=== PATIENT | male | born 1940 | race Caucasian/White ===

== ENCOUNTER → 2020-06-08 | Outpatient (REF) | payer MEDICARE, OTHER ==
[2020-07-05 19:55] LABS: HEMATOCRIT 44.5 % (42.0-52.0); HEMOGLOBIN 15.5 g/dl (13.5-17.5); MEAN CORPUSCULAR HEMOGLOBIN 30.2 pg (27.0-33.0); MEAN CORPUSCULAR HGB CONC 34.8 g/dl (32.0-36.5); MEAN CORPUSCULAR VOLUME 86.6 fl (80.0-96.0); PLATELET COUNT, AUTOMATED 286 10^3/uL (150-450); RED BLOOD COUNT 5.14 10^6/uL (4.30-6.10); WHITE BLOOD COUNT 10.1 10^3/uL (4.0-10.0)
[2020-07-18 20:38] LABS: ALT/SGPT 22 U/L (12-78); BLOOD UREA NITROGEN 20 MG/DL (7-18); CARBON DIOXIDE LEVEL 28 MEQ/L (21-32); CHLORIDE LEVEL 100 MEQ/L (98-107); CREATININE FOR GFR 1.13 MG/DL (0.70-1.30); GLOMERULAR FILTRATION RATE > 60.0 (>42); GLUCOSE, FASTING 127 MG/DL (70-100); POTASSIUM SERUM 3.4 MEQ/L (3.5-5.1); SODIUM LEVEL 134 MEQ/L (136-145); TOTAL PROTEIN 7.3 GM/DL (6.4-8.2)
== END ==
LOC: M LAB REF 08:28
PROVIDERS: ATTEND Physician Assistant Medical
DX: C64.2 Malignant neoplasm of left kidney, except renal pelvis (principal)

== ENCOUNTER → 2021-06-15 | Outpatient (CLI) | payer MEDICARE, OTHER ==
[2021-06-15 15:28] LABS: HEMATOCRIT 40.6 % (42.0-52.0); HEMOGLOBIN 13.7 g/dl (13.5-17.5); MEAN CORPUSCULAR HEMOGLOBIN 28.6 pg (27.0-33.0); MEAN CORPUSCULAR HGB CONC 33.7 g/dl (32.0-36.5); MEAN CORPUSCULAR VOLUME 84.8 fl (80.0-96.0); PLATELET COUNT, AUTOMATED 277 10^3/uL (150-450); RED BLOOD COUNT 4.79 10^6/uL (4.30-6.10); WHITE BLOOD COUNT 9.5 10^3/uL (4.0-10.0)
[2021-06-15 15:53] LABS: ALT/SGPT 21 U/L (12-78); BILIRUBIN,TOTAL 1.7 MG/DL (0.2-1.0); BLOOD UREA NITROGEN 18 MG/DL (7-18); CALCIUM LEVEL 8.8 MG/DL (8.8-10.2); CARBON DIOXIDE LEVEL 30 MEQ/L (21-32); CHLORIDE LEVEL 100 MEQ/L (98-107); CREATININE FOR GFR 1.14 MG/DL (0.70-1.30); GLOMERULAR FILTRATION RATE > 60.0 (>42); GLUCOSE, FASTING 169 MG/DL (70-100); POTASSIUM SERUM 3.5 MEQ/L (3.5-5.1); SODIUM LEVEL 137 MEQ/L (136-145); TOTAL PROTEIN 6.8 GM/DL (6.4-8.2)
== END ==
LOC: M PLALAB 14:11
PROVIDERS: ATTEND Physician Assistant Medical
DX: C64.2 Malignant neoplasm of left kidney, except renal pelvis (principal); I89.0 Lymphedema, not elsewhere classified; N40.0 Benign prostatic hyperplasia without lower urinary tract symptoms

== ENCOUNTER → 2021-06-21 | Outpatient (CLI) | payer MEDICARE, OTHER ==
[~2021-06-21] MED LIST: PROHANCE 279.3MG/ML 15ML VIAL ONE; PROHANCE 279.3MG/ML 5ML VIAL ONE
--- NOTE | 2021-06-21 12:30 | REP ---
INDICATION: KIDNEY CANCER. Status post right nephrectomy. Follow-up left renal lesion. COMPARISON: Comparison is made with multiple prior CT and MRI studies, the most remote of which is from September 30, 2019 and the most recent of which is from December 21, 2020.. TECHNIQUE: Axial and coronal imaging planes utilized. T1 and T2 weighted sequences include spin echo, fast spin echo, gradient echo, and dynamically acquired sequential postcontrast images. Gadolinium enhancement dose is 18 mL of intravenous ProHance. FINDINGS: Patient is status post right nephrectomy. There is no evidence of residual or recurrent mass effect in the nephrectomy bed. There are scattered liver cysts again noted unchanged. No splenic or pancreatic abnormality is appreciated. No retroperitoneal mass or adenopathy is seen. Normal adrenal glands are observed bilaterally. Small stable cortical cysts are seen in the left kidney. At the lower pole the left kidney there is a area of scarring which is less prominent than on comparison studies. This is the site where the original CT study from September 30, 2019 showed a enhancing mass. The patient is status post ablation. There is no evidence of residual or recurrent mass in the left kidney. No hydronephrosis seen. No regional adenopathy. IMPRESSION: Post ablation defect lower pole left kidney. Small cortical cysts left kidney and is simple hepatic cysts are again seen. <Electronically signed by Oswald Mason > 06/21/21 [id number]
== END ==
LOC: M PLAIMG 10:54
PROVIDERS: ATTEND Physician Assistant Medical
DX: Q61.8 Other cystic kidney diseases (principal); C64.9 Malignant neoplasm of unspecified kidney, except renal pelvis; Q44.6 Cystic disease of liver
CPT/HCPCS: 74183; A9576

== ENCOUNTER 2021-07-09 07:39 | Emergency (ER) | payer MEDICARE, OTHER ==
[~2021-07-09] VITALS: Ht 185.4 cm; Wt 94.1 kg
[2021-07-09 07:51] VITALS: BP 170/87
--- NOTE | 2021-07-09 09:44 | REPVR ---
PROCEDURE INFORMATION: Exam: CT Head Without Contrast Exam date and time: 07/09/2021 9:11 AM Age: 80 years old Clinical indication: Numbness / parasthesia; Bilateral; Additional info: Bilat arm parasthesia since 0300 TECHNIQUE: Imaging protocol: Computed tomography of the head without contrast. Radiation optimization: All CT scans at this facility use at least one of these dose optimization techniques: automated exposure control; mA and/or kV adjustment per patient size (includes targeted exams where dose is matched to clinical indication); or iterative reconstruction. COMPARISON: No relevant prior studies available. FINDINGS: Brain: Symmetric prominence of the cortical sulci. Mild small vessel ischemic change. No acute cortical infarct, mass effect, or intracranial hemorrhage. Cerebral ventricles: Normal configuration of the ventricles. Paranasal sinuses: Low-grade inflammatory change in the right sphenoid sinus. Mastoid air cells: No mastoid effusion. Vasculature: Vascular, basal ganglia, and dural calcifications. Bones/joints: No acute calvarial pathology. Soft tissues: Unremarkable soft tissues. IMPRESSION: No acute intracranial pathology. Electronically signed by: Dank Ly On 07/09/2021 09:44:29 AM
--- NOTE | 2021-07-09 09:47 | REPVR ---
PROCEDURE INFORMATION: Exam: CT Cervical Spine Without Contrast Exam date and time: 07/09/2021 9:11 AM Age: 80 years old Clinical indication: Other: Bilat arm parasthesia since 0300 TECHNIQUE: Imaging protocol: Computed tomography images of the cervical spine without contrast. Radiation optimization: All CT scans at this facility use at least one of these dose optimization techniques: automated exposure control; mA and/or kV adjustment per patient size (includes targeted exams where dose is matched to clinical indication); or iterative reconstruction. COMPARISON: No relevant prior studies available. FINDINGS: Bones/joints: No acute bony injury or malalignment in the cervical spine. Discs/Spinal canal/Neural foramina: Multilevel degenerative change with disc space narrowing and foraminal stenosis, of greatest severity at the C5-C6 level. Note that assessment of disc, spinal cord, and nerve root pathology is limited in the absence of intrathecal contrast. No focal cervical disc herniation. Lungs: Unremarkable apices as visualized. Soft tissues: Extensive ligamentous calcification. IMPRESSION: Multilevel degenerative change with disc space narrowing and foraminal stenosis, of greatest severity at the C5-C6 level. Electronically signed by: Dank Ly On 07/09/2021 09:46:54 AM
[2021-07-09 10:04] LABS: BASO # 0.1 10^3/uL (0.0-0.2); BASO % 0.6 % (0.0-1.0); EOS # 0.1 10^3/uL (0.0-0.5); EOS % 0.7 % (0.0-3.0); HEMATOCRIT 45.3 % (42.0-52.0); HEMOGLOBIN 15.5 g/dl (13.5-17.5); LYMPH # 1.4 10^3/uL (1.5-5.0); LYMPH % 13.3 % (24.0-44.0); MEAN CORPUSCULAR HEMOGLOBIN 29.1 pg (27.0-33.0); MEAN CORPUSCULAR HGB CONC 34.2 g/dl (32.0-36.5); MEAN CORPUSCULAR VOLUME 85.2 fl (80.0-96.0); MONO # 0.6 10^3/uL (0.0-0.8); MONO % 5.2 % (2.0-8.0); NEUTROPHILS # 8.6 10^3/uL (1.5-8.5); NEUTROPHILS % 79.6 % (36.0-66.0); PLATELET COUNT, AUTOMATED 305 10^3/uL (150-450); RED BLOOD COUNT 5.32 10^6/uL (4.30-6.10); WHITE BLOOD COUNT 10.8 10^3/uL (4.0-10.0)
[2021-07-09 10:33] LABS: ALBUMIN 4.2 GM/DL (3.2-5.2); ALT/SGPT 25 U/L (12-78); BILIRUBIN,DIRECT 0.4 MG/DL (0.0-0.2); BILIRUBIN,TOTAL 2.1 MG/DL (0.2-1.0); BLOOD UREA NITROGEN 15 MG/DL (7-18); CARBON DIOXIDE LEVEL 29 MEQ/L (21-32); CHLORIDE LEVEL 100 MEQ/L (98-107); CREATININE FOR GFR 1.11 MG/DL (0.70-1.30); GLOMERULAR FILTRATION RATE > 60.0 (>42); GLUCOSE, FASTING 175 MG/DL (70-100); LIPASE 297 U/L (73-393); POTASSIUM SERUM 3.7 MEQ/L (3.5-5.1); SODIUM LEVEL 135 MEQ/L (136-145); TOTAL PROTEIN 7.1 GM/DL (6.4-8.2)
== END 2021-07-09 10:59 | disposition home or self-care (01) ==
LOC: M ED 07:39
DX: R20.2 Paresthesia of skin (principal); R30.0 Dysuria; I48.91 Unspecified atrial fibrillation; E11.9 Type 2 diabetes mellitus without complications; I10 Essential (primary) hypertension; G47.33 Obstructive sleep apnea (adult) (pediatric); Z79.01 Long term (current) use of anticoagulants; Z85.528 Personal history of other malignant neoplasm of kidney; Z98.890 Other specified postprocedural states; Z90.5 Acquired absence of kidney

== ENCOUNTER → 2023-07-06 | Outpatient (CLI) | payer MEDICARE, OTHER ==
[~2023-07-06] MED LIST changes: +ISOVUE-370 76% 100ML VIAL As Ordered ONE; -PROHANCE 279.3MG/ML 15ML VIAL ONE; -PROHANCE 279.3MG/ML 5ML VIAL ONE
== END ==
LOC: M RAD 08:54
DX: C64.2 Malignant neoplasm of left kidney, except renal pelvis (principal); K76.89 Other specified diseases of liver; Z90.5 Acquired absence of kidney; N20.0 Calculus of kidney; N28.1 Cyst of kidney, acquired; N40.0 Benign prostatic hyperplasia without lower urinary tract symptoms; M85.80 Other specified disorders of bone density and structure, unspecified site; K40.20 Bilateral inguinal hernia, without obstruction or gangrene, not specified as recurrent; N28.89 Other specified disorders of kidney and ureter
CPT/HCPCS: 74177; Q9967